=== PATIENT | female | born 1945 | race Caucasian/White ===

== ENCOUNTER 2017-03-12 14:47 | Inpatient (IN) | payer OTHER ==
[~2017-03-12] VITALS: Ht 162.6 cm; Wt 48.3 kg
[~2017-03-12 14:47] MED LIST: ADVAIR 250-501 EACH IH; ADVAIR 250/501 DISK IH; ATIVAN0.5 MG PO; CRESTOR5 MG PO; DALIRESP500 MCG PO; DELTASONE10 MG PO; DILTIAZEM 24HR240 MG PO; DUONEB3 ML IH; PHENOBARBITAL32.4 MG PO; SPIRIVA RESPIMAT4 GM IH; SPIRIVA1 INHALATI IH; THEO-DUR200 MG PO; VENTOLIN HFA18 GM IH; WELLBUTRIN SR150 MG PO
[2017-03-12 20:28] LABS: HEMATOCRIT 37.4 % (36.0-46.0); HEMOGLOBIN 12.1 G/DL (11.9-15.5); MCH 30.3 PG (29.0-34.0); MCHC 32.4 G/DL (30.0-36.0); MCV 93.7 FL (83-99); PLATELET COUNT 240 K/uL (156-360); RBC DIS.WIDTH-SD 41.6 % (39-53); RED BLOOD COUNT 3.99 M/uL (3.80-5.20); WHITE BLOOD COUNT 8.8 K/uL (4.1-10.2)
[2017-03-12 20:36] LABS: CHLORIDE 98 mEq/L (99-109); POTASSIUM 4.6 mEq/L (3.7-5.4); SODIUM 135 mEq/L (136-147)
[2017-03-12 20:38] LABS: GLUCOSE 104 mg/dL (70-99)
[2017-03-12 20:42] LABS: CREATININE 0.5 mg/dL (0.6-1.3); GFR ESTIMATE (CALCULATED) > 59 mL/min/
[2017-03-12 20:43] LABS: UREA NITROGEN (BUN) 15 mg/dL (9-23)
[2017-03-13] MEDS ORDERED: ROSUVASTATIN CAL5 MG PO (00:56)
[2017-03-13] MEDS ORDERED: VENTOLIN HFA18 GM IH ×2 (00:57→01:05)
[2017-03-13] MEDS ORDERED: DALIRESP500 MCG PO (00:58)
[2017-03-13] MEDS ORDERED: CARTIA XT240 MG PO (00:59)
[2017-03-13] MEDS ORDERED: BUSPAR5 MG PO (01:00)
[2017-03-13] MEDS ORDERED: RANITIDINE HCL150 MG PO (01:01)
[2017-03-13] MEDS ORDERED: ADVAIR 250/501 DISK IH (01:02)
[2017-03-13] MEDS ORDERED: DUONEB 2.5-0.5 M3 ML AEROSOL (01:02)
[2017-03-13] MEDS ORDERED: COMBIVENT RESPIM4 GM IH (01:04)
[2017-03-13] MEDS ORDERED: ATROVENT H200 INHALA IH (01:04)
[2017-03-13 03:59] LABS: APPEARANCE CLEAR ((CLEAR)); BILIRUBIN NEGATIVE; BLOOD NEGATIVE; COLOR YELLOW ((YELLOW)); GLUCOSE (STRIP) NEGATIVE; KETONES 20; LEUKOCYTES NEGATIVE; NITRITE NEGATIVE; PROTEIN (STRIP) 30; SPECIFIC GRAVITY 1.025 (1.000-1.030); UCUL ADDED? NO; UROBILINOGEN 0.2 MG/DL (0.2-1.0)
[2017-03-13 06:07] LABS: HEMATOCRIT 34.3 % (36.0-46.0); HEMOGLOBIN 11.3 G/DL (11.9-15.5); MCH 31.1 PG (29.0-34.0); MCHC 32.9 G/DL (30.0-36.0); MCV 94.5 FL (83-99); PLATELET COUNT 230 K/uL (156-360); RBC DIS.WIDTH-SD 41.9 % (39-53); RED BLOOD COUNT 3.63 M/uL (3.80-5.20); WHITE BLOOD COUNT 6.6 K/uL (4.1-10.2)
[2017-03-13 06:15] LABS: CHLORIDE 96 mEq/L (99-109); POTASSIUM 4.4 mEq/L (3.7-5.4); SODIUM 134 mEq/L (136-147)
[2017-03-13 06:17] LABS: GLUCOSE 96 mg/dL (70-99)
[2017-03-13 06:21] LABS: CREATININE 0.5 mg/dL (0.6-1.3); GFR ESTIMATE (CALCULATED) > 59 mL/min/
[2017-03-13 06:22] LABS: UREA NITROGEN (BUN) 17 mg/dL (9-23)
[2017-03-13 06:58] LABS: HDL CHOLESTEROL 71 MG/DL (Desirable>=50); LDL CHOLESTEROL 76 mg/dL (Desirable<100); NON-HDL CHOLESTEROL 84 mg/dL (Desirable<160); TOTAL CHOLESTEROL 155 mg/dL (Desirable<200); TRIGLYCERIDES 39 MG/DL (Normal: <150)
[2017-03-13 17:29] VITALS: BP 130/63
[2017-03-13 20:54] VITALS: BP 130/60
[2017-03-14] VITALS (7 sets, daily range): BP systolic 127–172; BP diastolic 60–78
[2017-03-14 07:47] LABS: HEMATOCRIT 36.1 % (36.0-46.0); HEMOGLOBIN 11.8 G/DL (11.9-15.5); MCH 30.4 PG (29.0-34.0); MCHC 32.7 G/DL (30.0-36.0); PLATELET COUNT 233 K/uL (156-360); RBC DIS.WIDTH-CV 12.1 % (11.8-14.6); RBC DIS.WIDTH-SD 41.2 % (39-53); RED BLOOD COUNT 3.88 M/uL (3.80-5.20); WHITE BLOOD COUNT 5.2 K/uL (4.1-10.2)
[2017-03-14 08:28] LABS: CHLORIDE 97 MEQ/L (99-109); POTASSIUM 4.2 MEQ/L (3.7-5.4); SODIUM 138 MEQ/L (136-147)
[2017-03-14 08:34] LABS: CREATININE 0.3 MG/DL (0.6-1.3); GFR ESTIMATE (CALCULATED) > 59 mL/min/; GLUCOSE 118 mg/dL (70-99); UREA NITROGEN (BUN) 9 mg/dL (9-23)
[2017-03-15 00:27] VITALS: BP 141/63
[2017-03-15 06:05] LABS: BASOPHIL (%) 0.1 % (0-1); EOSINOPHIL (%) 0 % (0-5); HEMATOCRIT 32.5 % (36.0-46.0); HEMOGLOBIN 10.6 G/DL (11.9-15.5); IMMATURE GRANULOCYTE (%) 0.3 % (0.0-0.7); LYMPHOCYTE (%) 19.5 % (15-42); LYMPHOCYTE COUNT 1.5 K/uL (1.0-2.8); MCH 30.7 PG (29.0-34.0); MCHC 32.6 G/DL (30.0-36.0); MCV 94.2 FL (83-99); MONOCYTE (%) 14.6 % (3-12); MONOCYTE COUNT 1.2 K/uL (0-0.8); NEUTROPHIL (%) 65.5 % (45-76); NEUTROPHIL COUNT 5.2 K/uL (1.8-6.4); PLATELET COUNT 233 K/uL (156-360); RBC DIS.WIDTH-CV 12.4 % (11.8-14.6); RBC DIS.WIDTH-SD 43.1 % (39-53); RED BLOOD COUNT 3.45 M/uL (3.80-5.20); WHITE BLOOD COUNT 7.9 K/uL (4.1-10.2)
[2017-03-15 06:17] LABS: CHLORIDE 96 MEQ/L (99-109); SODIUM 139 MEQ/L (136-147)
[2017-03-15 06:23] LABS: CREATININE 0.3 MG/DL (0.6-1.3); GFR ESTIMATE (CALCULATED) > 59 mL/min/; GLUCOSE 90 mg/dL (70-99); UREA NITROGEN (BUN) 12 mg/dL (9-23)
[2017-03-15 06:24] LABS: FASTING STATUS A
[2017-03-15 08:24] VITALS: BP 126/62
[2017-03-15] MEDS ORDERED: OXYCODONE HCL5 MG PO (11:04)
[2017-03-15] MEDS ORDERED: LOVENOX40 MG/0.4 SC (11:11)
[2017-03-15 11:41] VITALS: BP 137/63
[2017-03-15 15:56] VITALS: BP 141/66
[2017-03-15 19:53] VITALS: BP 132/62
[2017-03-16 00:38] VITALS: BP 152/68
[2017-03-16 04:09] VITALS: BP 170/71
[2017-03-16 07:54] VITALS: BP 159/67
[2017-03-16 10:33] LABS: IRON 54 MCG/DL (35-150); TRANSFERRIN (TIBC) 228.1 mg/dL (215-380); TRANSFERRIN SATUR. 24 % (20-55)
[2017-03-16 11:44] LABS: FERRITIN 64 NG/ML (10-291)
[2017-03-16 11:52] VITALS: BP 140/65
[2017-03-16 12:55] LABS: HEMATOCRIT 37.6 % (36.0-46.0); HEMOGLOBIN 12.2 G/DL (11.9-15.5); MCH 30.9 PG (29.0-34.0); MCHC 32.4 G/DL (30.0-36.0); MCV 95.2 FL (83-99); PLATELET COUNT 256 K/uL (156-360); RBC DIS.WIDTH-CV 12.4 % (11.8-14.6); RBC DIS.WIDTH-SD 43.6 % (39-53); RED BLOOD COUNT 3.95 M/uL (3.80-5.20); WHITE BLOOD COUNT 7.6 K/uL (4.1-10.2)
[2017-03-16 13:12] LABS: CHLORIDE 91 MEQ/L (99-109); SODIUM 135 MEQ/L (136-147)
[2017-03-16 13:22] LABS: CREATININE 0.3 MG/DL (0.6-1.3); GFR ESTIMATE (CALCULATED) > 59 mL/min/; UREA NITROGEN (BUN) 11 mg/dL (9-23)
[2017-03-16 13:23] LABS: GLUCOSE 149 mg/dL (70-99)
[2017-03-16 19:39] VITALS: BP 143/67
[2017-03-17 00:14] VITALS: BP 162/70
[2017-03-17 03:58] VITALS: BP 170/78
[2017-03-17 04:00] VITALS: BP 155/75
[2017-03-17 07:52] VITALS: BP 138/63
[2017-03-17 11:27] VITALS: BP 128/61
[2017-03-17] MEDS ORDERED: CARDIZEM30 MG PO (13:50)
[2017-03-17] MEDS ORDERED: PREDNISONE10 MG PO (13:51)
[2017-03-17 15:12] VITALS: BP 141/65
[2017-03-17] MEDS ORDERED: OXYCODONE HCL5 MG PO (17:12)
== END 2017-03-17 18:22 | DRG 563 ==
LOC: EME 14:47 → 3EAST 21:22 → EDOF 21:22 → 3EAST 21:22 → ENRESERV 21:25 → 3EAST 03-13 17:23
PROVIDERS: Emergency Medicine; Internal Medicine
DX: S82.832A Other fracture of upper and lower end of left fibula, initial encounter for closed fracture (principal); J96.10 Chronic respiratory failure, unspecified whether with hypoxia or hypercapnia; S72.422A Displaced fracture of lateral condyle of left femur, initial encounter for closed fracture; W01.0XXA Fall on same level from slipping, tripping and stumbling without subsequent striking against object, initial encounter; Y92.009 Unspecified place in unspecified non-institutional (private) residence as the place of occurrence of the external cause; G40.909 Epilepsy, unspecified, not intractable, without status epilepticus; E86.0 Dehydration; J44.1 Chronic obstructive pulmonary disease with (acute) exacerbation; E78.00 Pure hypercholesterolemia, unspecified; I10 Essential (primary) hypertension; I16.0 Hypertensive urgency; E78.5 Hyperlipidemia, unspecified; Z99.81 Dependence on supplemental oxygen; F41.9 Anxiety disorder, unspecified; M81.0 Age-related osteoporosis without current pathological fracture; Z87.891 Personal history of nicotine dependence; Z86.718 Personal history of other venous thrombosis and embolism; R64 Cachexia; I27.20 Pulmonary hypertension, unspecified; I08.3 Combined rheumatic disorders of mitral, aortic and tricuspid valves; Z90.710 Acquired absence of both cervix and uterus; R63.6 Underweight; Z68.1 Body mass index [BMI] 19.9 or less, adult
CPT/HCPCS: 71045; 73564; 73610; 73700; 80048; 80061; 81003; 82272; 82728; 83540; 83605; 84443; 84466; 85025; 85027; 85610; 85730; 90686; 93005; 93306; 94640; 94640 76; 94760; 94799; 99202; 99281; 99285; G0378; J1650; J1885; J2060; J2270; J3010; J7030; J7512

== ENCOUNTER 2017-03-21 05:40 | Inpatient (IN) | payer OTHER ==
[~2017-03-21] VITALS: Ht 154.9 cm; Wt 58.0 kg
[2017-03-21] VITALS (16 sets, daily range): BP systolic 52–139; BP diastolic 33–66
[~2017-03-21 05:40] MED LIST changes: +ATROVENT H200 INHALA IH; +BUSPAR5 MG PO; +CARDIZEM30 MG PO; +CARTIA XT240 MG PO; +COMBIVENT RESPIM4 GM IH; +DUONEB 2.5-0.5 M3 ML AEROSOL; +LOVENOX40 MG/0.4 SC; +OXYCODONE HCL5 MG PO; +PREDNISONE10 MG PO; +RANITIDINE HCL150 MG PO; +ROSUVASTATIN CAL5 MG PO
[2017-03-21 06:07] LABS: BASE EXCESS 8.3 mEq/L (-3 to +3); BICARBONATE 38.6 mEq/L (22-26); CARBOXY HGB 1.1 % (0-5); COMMENTS - BLOOD GASES C+; DEVICE VENT; FI02 80 %; MECHANICAL RATE 16 resp/min; METHEMOGLOBIN 1.7 % (0-1.5); MODE A/C; PCO2 84 mm Hg (35-45); PEEP 5 CM/H20; PO2 280 mm Hg (80-100); SITE LR; TIDAL VOLUME 400 ML; TOTAL RESP RATE 16 resp/min; pH 7.27 (7.35-7.45)
[2017-03-21 06:49] LABS: BASOPHIL (%) 0.1 % (0-1); EOSINOPHIL (%) 0 % (0-5); HEMATOCRIT 35.9 % (36.0-46.0); HEMOGLOBIN 11.8 G/DL (11.9-15.5); IMMATURE GRANULOCYTE (%) 0.6 % (0.0-0.7); LYMPHOCYTE (%) 3.8 % (15-42); LYMPHOCYTE COUNT 0.5 K/uL (1.0-2.8); MCH 30.5 PG (29.0-34.0); MCHC 32.9 G/DL (30.0-36.0); MCV 92.8 FL (83-99); MONOCYTE (%) 3.3 % (3-12); MONOCYTE COUNT 0.4 K/uL (0-0.8); NEUTROPHIL (%) 92.2 % (45-76); NEUTROPHIL COUNT 12.1 K/uL (1.8-6.4); PLATELET COUNT 284 K/uL (156-360); RBC DIS.WIDTH-CV 12.5 % (11.8-14.6); RBC DIS.WIDTH-SD 41.8 % (39-53); RED BLOOD COUNT 3.87 M/uL (3.80-5.20); WHITE BLOOD COUNT 13.1 K/uL (4.1-10.2)
[2017-03-21 06:59] LABS: CHLORIDE 90 mEq/L (99-109); SODIUM 130 mEq/L (136-147)
[2017-03-21 07:01] LABS: GLUCOSE 142 mg/dL (70-99)
[2017-03-21 07:02] LABS: POTASSIUM 4.9 mEq/L (3.7-5.4)
[2017-03-21 07:05] LABS: CREATININE 0.5 mg/dL (0.6-1.3); GFR ESTIMATE (CALCULATED) > 59 mL/min/
[2017-03-21 07:06] LABS: UREA NITROGEN (BUN) 19 mg/dL (9-23)
[2017-03-21 07:13] LABS: TROP-I INTERPRETATION NEGATIVE; TROPONIN-I < 0.01 ng/mL (0.0-0.30)
[2017-03-21] MEDS ORDERED: CRESTOR5 MG PO (09:25)
[2017-03-21] MEDS ORDERED: BUSPAR5 MG PO (09:26)
[2017-03-21] MEDS ORDERED: ZANTAC150 MG PO (09:26)
[2017-03-21] MEDS ORDERED: DALIRESP500 MCG PO (09:26)
[2017-03-21] MEDS ORDERED: ADVAIR 250/501 DISK IH (09:27)
[2017-03-21] MEDS ORDERED: LOVENOX40 MG/0.4 SC (09:28)
[2017-03-21] MEDS ORDERED: CARDIZEM CD120 M1 PO (09:29)
[2017-03-21] MEDS ORDERED: SENNA-S TABLET1 EACH PO (09:30)
[2017-03-21] MEDS ORDERED: COLACE100 MG PO (09:30)
[2017-03-21] MEDS ORDERED: ATROVENT H200 INHALA IH (09:31)
[2017-03-21] MEDS ORDERED: DUONEB 2.5-0.5 M3 ML AEROSOL (09:31)
[2017-03-21] MEDS ORDERED: OXAYDO5 MG PO (09:33)
[2017-03-21] MEDS ORDERED: ATIVAN0.5 MG PO (09:34)
[2017-03-21 13:58] LABS: CARBOXY HGB 2.2 % (0-5); METHEMOGLOBIN 1.9 % (0-1.5)
[2017-03-21 13:59] LABS: BICARBONATE 29.4 mEq/L (22-26); COMMENTS - BLOOD GASES A+C+; DEVICE VENTILATOR; MECHANICAL RATE 16 resp/min; MODE AC-16; PCO2 64 mm Hg (35-45); PEEP 5 CM/H20; PO2 79 mm Hg (80-100); SITE RR; TIDAL VOLUME 400 ML; TOTAL RESP RATE 17 resp/min; pH 7.27 (7.35-7.45)
[2017-03-21 14:00] LABS: FI02 70 %
[2017-03-22] VITALS (26 sets, daily range): BP systolic 81–142; BP diastolic 41–73
[2017-03-22 10:33] LABS: CREATININE 0.9 MG/DL (0.6-1.3); GFR ESTIMATE (CALCULATED) > 59 mL/min/; GLUCOSE 128 mg/dL (70-99); POTASSIUM 4.1 MEQ/L (3.7-5.4)
[2017-03-22 10:34] LABS: CHLORIDE 109 MEQ/L (99-109); SODIUM 139 MEQ/L (136-147); UREA NITROGEN (BUN) 33 mg/dL (9-23)
[2017-03-23] VITALS (25 sets, daily range): BP systolic 62–141; BP diastolic 37–93
[2017-03-23 09:20] LABS: VANCOMYCIN, TROUGH 18.9 MCG/ML (10-20)
[2017-03-23 12:20] LABS: CHLORIDE 109 MEQ/L (99-109); CREATININE 1.5 MG/DL (0.6-1.3); GFR ESTIMATE (CALCULATED) 37 mL/min/; GLUCOSE 122 mg/dL (70-99); POTASSIUM 4.5 MEQ/L (3.7-5.4); SODIUM 139 MEQ/L (136-147); UREA NITROGEN (BUN) 48 mg/dL (9-23)
[2017-03-23 13:01] LABS: BASE EXCESS -6.9 mEq/L (-3 to +3); BICARBONATE 19.7 mEq/L (22-26); CARBOXY HGB 1.5 % (0-5); COMMENTS - BLOOD GASES A+C+; METHEMOGLOBIN 1.9 % (0-1.5); PCO2 43 mm Hg (35-45); PO2 103 mm Hg (80-100); SITE RR; pH 7.27 (7.35-7.45)
[2017-03-23 13:02] LABS: DEVICE VENTILATOR; MECHANICAL RATE 22 resp/min; MODE AC-22; PEEP 5 CM/H20; TIDAL VOLUME 400 ML; TOTAL RESP RATE 22 resp/min
[2017-03-23 21:15] LABS: HEMATOCRIT 27.1 % (36.0-46.0); MCH 30.6 PG (29.0-34.0); MCHC 32.8 G/DL (30.0-36.0); MCV 93.1 FL (83-99); RBC DIS.WIDTH-CV 13.7 % (11.8-14.6); WHITE BLOOD COUNT 20.8 K/uL (4.1-10.2)
[2017-03-23 21:23] LABS: ABS NEUTROPHIL COUNT 19.4; ANISOCYTOSIS 2+; BAND NEUTROPHILS 15.7 % (0-8.0); EOSINOPHIL ABS CT 0; HEMOGLOBIN 8.9 G/DL (11.9-15.5); LYMPHOCYTES 0.9 % (15.0-45.0); MACROCYTES 1+; METAMYELOCYTES 0.9 %; MONOCYTES 5.1 % (0-9.0); PLAT.SUFFICIENCY ADEQUATE; PLATELET CLUMPS PRESENT - PLATELET COUNT APPEARS ADQ.; PLATELET COUNT UNABLE TO REPORT K/uL (156-360); RED BLOOD COUNT 2.91 M/uL (3.80-5.20); SEG.NEUTROPHILS 77.4 % (46.0-76.0)
[2017-03-23 21:24] LABS: ALBUMIN 2.7 G/DL (3.2-4.8); CHLORIDE 109 MEQ/L (99-109); MAGNESIUM 2.2 mg/dl (1.3-2.7); POTASSIUM 4.2 MEQ/L (3.7-5.4); SODIUM 137 MEQ/L (136-147); TOTAL BILIRUBIN 0.6 MG/DL (0.0-1.0)
[2017-03-23 21:38] LABS: HIGH-SENS C-REACTIVE PROTEIN > 8.00 MG/DL (0.02-0.20)
[2017-03-23 21:39] LABS: ALKALINE PHOSPHATASE 74 IU/L (3-129); ALT (GPT) 49 IU/L (3-49); AST (GOT) 33 IU/L (2-34); GFR ESTIMATE (CALCULATED) 26 mL/min/; GLUCOSE 135 mg/dL (70-99); PHOSPHORUS 3.8 mg/dL (2.5-4.9); TOTAL PROTEIN 4.6 G/DL (6.4-8.3); UREA NITROGEN (BUN) 57 mg/dL (9-23)
[2017-03-24] VITALS (21 sets, daily range): BP systolic 84–134; BP diastolic 46–88
[2017-03-24 01:42] LABS: UR CREATININE CONCENTRATION 136.3 MG/DL
[2017-03-24 08:59] LABS: HEMATOCRIT 27.3 % (36.0-46.0); HEMOGLOBIN 9.1 G/DL (11.9-15.5); MCH 30.7 PG (29.0-34.0); MCHC 33.3 G/DL (30.0-36.0); MCV 92.2 FL (83-99); NRBC (%) 0.1 /100 WBC (0-0); RBC DIS.WIDTH-CV 13.9 % (11.8-14.6); RED BLOOD COUNT 2.96 M/uL (3.80-5.20); WHITE BLOOD COUNT 21.5 K/uL (4.1-10.2)
[2017-03-24 09:30] LABS: ALBUMIN 2.4 G/DL (3.2-4.8); ALKALINE PHOSPHATASE 97 IU/L (3-129); ALT (GPT) 63 IU/L (3-49); CHLORIDE 106 MEQ/L (99-109); CREATININE 2.4 MG/DL (0.6-1.3); GFR ESTIMATE (CALCULATED) 21 mL/min/; GLUCOSE 134 mg/dL (70-99); MAGNESIUM 2.3 mg/dl (1.3-2.7); PHOSPHORUS 4.5 mg/dL (2.5-4.9); POTASSIUM 4.3 MEQ/L (3.7-5.4); SODIUM 136 MEQ/L (136-147); TOTAL BILIRUBIN 0.6 MG/DL (0.0-1.0); TOTAL PROTEIN 4.1 G/DL (6.4-8.3); UREA NITROGEN (BUN) 63 mg/dL (9-23)
[2017-03-24 09:31] LABS: ABS NEUTROPHIL COUNT 20.9; ANISOCYTOSIS 1+; BAND NEUTROPHILS 6.1 % (0-8.0); BURR CELLS 3+; EOSINOPHIL ABS CT 0; LYMPHOCYTES 1.3 % (15.0-45.0); MACROCYTES 1+; MONOCYTES 1.3 % (0-9.0); NUCLEATED RBC'S 0.4; PLAT.SUFFICIENCY ADEQUATE; POIKILOCYTOSIS 3+; SEG.NEUTROPHILS 91.3 % (46.0-76.0)
[2017-03-24 09:39] LABS: PLATELET COUNT 168 K/uL (156-360)
[2017-03-24 10:01] LABS: AST (GOT) 50 IU/L (2-34)
[2017-03-24 11:43] LABS: HEPATITIS B SURFACE ANTIGEN Nonreactive
[2017-03-24 11:44] LABS: HEPATITIS C ANTIBODY Nonreactive
[2017-03-24 11:45] LABS: ANTI-HEPATITIS A VIRUS (IGM) Nonreactive; ANTI-HEPATITIS B CORE (IGM) Nonreactive
[2017-03-24 18:03] LABS: HEMATOCRIT 26.5 % (36.0-46.0); HEMOGLOBIN 8.9 G/DL (11.9-15.5); MCH 30.4 PG (29.0-34.0); MCHC 33.6 G/DL (30.0-36.0); MCV 90.4 FL (83-99); NRBC (%) 0.1 /100 WBC (0-0); PLATELET COUNT 164 K/uL (156-360); RBC DIS.WIDTH-CV 14.1 % (11.8-14.6); RBC DIS.WIDTH-SD 46.9 % (39-53); RED BLOOD COUNT 2.93 M/uL (3.80-5.20); WHITE BLOOD COUNT 25.5 K/uL (4.1-10.2)
[2017-03-24 18:34] LABS: ALBUMIN 2.9 G/DL (3.2-4.8); CHLORIDE 105 MEQ/L (99-109); CREATININE 2.4 MG/DL (0.6-1.3); GFR ESTIMATE (CALCULATED) 21 mL/min/; GLUCOSE 122 mg/dL (70-99); MAGNESIUM 2.4 mg/dl (1.3-2.7); PHOSPHORUS 4.4 mg/dL (2.5-4.9); POTASSIUM 4.2 MEQ/L (3.7-5.4); SODIUM 135 MEQ/L (136-147); UREA NITROGEN (BUN) 68 mg/dL (9-23)
[2017-03-24 18:58] LABS: ABS NEUTROPHIL COUNT 24.2; ANISOCYTOSIS 1+; BAND NEUTROPHILS 15.6 % (0-8.0); EOSINOPHIL ABS CT 0; LYMPHOCYTES 0.9 % (15.0-45.0); MACROCYTES 1+; METAMYELOCYTES 1.7 %; MONOCYTES 2.6 % (0-9.0); SEG.NEUTROPHILS 79.2 % (46.0-76.0)
[2017-03-25] VITALS (14 sets, daily range): BP systolic 91–130; BP diastolic 45–85
[2017-03-25 00:52] LABS: ALBUMIN 3.1 g/dL (3.2-4.8)
[2017-03-25 00:53] LABS: POTASSIUM 4.2 mEq/L (3.7-5.4); SODIUM 136 mEq/L (136-147)
[2017-03-25 00:55] LABS: GLUCOSE 108 mg/dL (70-99)
[2017-03-25 00:57] LABS: CHLORIDE 107 mEq/L (99-109)
[2017-03-25 00:58] LABS: PHOSPHORUS 3.2 mg/dL (2.5-4.9)
[2017-03-25 00:59] LABS: GFR ESTIMATE (CALCULATED) 34 mL/min/
[2017-03-25 01:00] LABS: UREA NITROGEN (BUN) 49 mg/dL (9-23)
[2017-03-25 01:12] LABS: CREATININE 1.6 mg/dL (0.6-1.3)
[2017-03-25 07:02] LABS: HEMOGLOBIN 9.7 G/DL (11.9-15.5); MCH 29.6 PG (29.0-34.0); MCHC 33.4 G/DL (30.0-36.0); MCV 88.4 FL (83-99); NRBC (%) 0.3 /100 WBC (0-0); RBC DIS.WIDTH-CV 14.2 % (11.8-14.6); RBC DIS.WIDTH-SD 46.1 % (39-53); RED BLOOD COUNT 3.28 M/uL (3.80-5.20); WHITE BLOOD COUNT 22.4 K/uL (4.1-10.2)
[2017-03-25 07:12] LABS: ALBUMIN 3.1 G/DL (3.2-4.8); ALKALINE PHOSPHATASE 96 IU/L (3-129); ALT (GPT) 65 IU/L (3-49); AST (GOT) 48 IU/L (2-34); CHLORIDE 107 MEQ/L (99-109); CREATININE 1.2 MG/DL (0.6-1.3); GFR ESTIMATE (CALCULATED) 47 mL/min/; GLUCOSE 103 mg/dL (70-99); MAGNESIUM 2.4 mg/dl (1.3-2.7); POTASSIUM 4.3 MEQ/L (3.7-5.4); SODIUM 138 MEQ/L (136-147); UREA NITROGEN (BUN) 38 mg/dL (9-23)
[2017-03-25 07:16] LABS: ABS NEUTROPHIL COUNT 21.5; ANISOCYTOSIS 1+; BAND NEUTROPHILS 10.9 % (0-8.0); BASOPHILS 0.4 %; BURR CELLS 1+; EOSINOPHIL ABS CT 0; MACROCYTES 1+; MONOCYTES 3.5 % (0-9.0); NUCLEATED RBC'S 0.9; OVALOCYTES 1+; PLAT.SUFFICIENCY DECREASED; PLATELET COUNT 122 K/uL (156-360); POIKILOCYTOSIS 3+; POLYCHROMASIA 1+; SEG.NEUTROPHILS 85.2 % (46.0-76.0)
[2017-03-25 07:22] LABS: PHOSPHORUS 2.7 mg/dL (2.5-4.9); TOTAL BILIRUBIN 0.8 MG/DL (0.0-1.0); TOTAL PROTEIN 5.4 G/DL (6.4-8.3)
[2017-03-25 14:19] LABS: ALBUMIN 2.8 g/dL (3.2-4.8); CHLORIDE 107 mEq/L (99-109); POTASSIUM 4.8 mEq/L (3.7-5.4); SODIUM 135 mEq/L (136-147)
[2017-03-25 14:21] LABS: GLUCOSE 92 mg/dL (70-99)
[2017-03-25 14:25] LABS: CREATININE 1.1 mg/dL (0.6-1.3); GFR ESTIMATE (CALCULATED) 52 mL/min/; PHOSPHORUS 2.3 mg/dL (2.5-4.9)
[2017-03-25 14:26] LABS: UREA NITROGEN (BUN) 30 mg/dL (9-23)
[2017-03-25 18:36] LABS: HEMATOCRIT 30.2 % (36.0-46.0); HEMOGLOBIN 10.1 G/DL (11.9-15.5); MCH 29.7 PG (29.0-34.0); MCHC 33.4 G/DL (30.0-36.0); MCV 88.8 FL (83-99); NRBC (%) 0.5 /100 WBC (0-0); PLATELET COUNT 105 K/uL (156-360); RBC DIS.WIDTH-CV 14.7 % (11.8-14.6); RBC DIS.WIDTH-SD 47.4 % (39-53); WHITE BLOOD COUNT 22.4 K/uL (4.1-10.2)
[2017-03-25 18:52] LABS: MAGNESIUM 2.4 mg/dl (1.3-2.7); PHOSPHORUS 2.3 mg/dL (2.5-4.9)
[2017-03-25 19:18] LABS: ABS NEUTROPHIL COUNT 19.6; ANISOCYTOSIS 2+; BURR CELLS 1+; EOSINOPHIL ABS CT 0; LYMPHOCYTES 0.9 % (15.0-45.0); MACROCYTES 2+; METAMYELOCYTES 2.2 %; MONOCYTES 8.4 % (0-9.0); MYELOCYTES 0.9 %; NUCLEATED RBC'S 2.7; OVALOCYTES 1+; PLAT.SUFFICIENCY ADEQUATE; POIKILOCYTOSIS 1+
[2017-03-25 19:25] LABS: BAND NEUTROPHILS 42.5 % (0-8.0); SEG.NEUTROPHILS 45.1 % (46.0-76.0)
[2017-03-25 21:13] LABS: ALBUMIN 2.9 G/DL (3.2-4.8); CHLORIDE 107 MEQ/L (99-109); CREATININE 0.9 MG/DL (0.6-1.3); GFR ESTIMATE (CALCULATED) > 59 mL/min/; GLUCOSE 86 mg/dL (70-99); PHOSPHORUS 2.4 mg/dL (2.5-4.9); POTASSIUM 4.6 MEQ/L (3.7-5.4); SODIUM 138 MEQ/L (136-147); UREA NITROGEN (BUN) 24 mg/dL (9-23)
[2017-03-26] VITALS (24 sets, daily range): BP systolic 65–151; BP diastolic 41–79
[2017-03-26 05:18] LABS: HEMATOCRIT 30.8 % (36.0-46.0); HEMOGLOBIN 10.1 G/DL (11.9-15.5); MCH 29.5 PG (29.0-34.0); MCHC 32.8 G/DL (30.0-36.0); MCV 90.1 FL (83-99); NRBC (%) 0.8 /100 WBC (0-0); RBC DIS.WIDTH-CV 15.3 % (11.8-14.6); RBC DIS.WIDTH-SD 50.6 % (39-53); RED BLOOD COUNT 3.42 M/uL (3.80-5.20)
[2017-03-26 05:47] LABS: ALBUMIN 2.6 G/DL (3.2-4.8); ALKALINE PHOSPHATASE 120 IU/L (3-129); CHLORIDE 105 MEQ/L (99-109); CREATININE 0.8 MG/DL (0.6-1.3); GFR ESTIMATE (CALCULATED) > 59 mL/min/; GLUCOSE 83 mg/dL (70-99); MAGNESIUM 2.5 mg/dl (1.3-2.7); PHOSPHORUS 2.7 mg/dL (2.5-4.9); POTASSIUM 4.8 MEQ/L (3.7-5.4); SODIUM 136 MEQ/L (136-147); TOTAL BILIRUBIN 1.5 MG/DL (0.0-1.0); TOTAL PROTEIN 4.4 G/DL (6.4-8.3); UREA NITROGEN (BUN) 23 mg/dL (9-23)
[2017-03-26 05:48] LABS: ALT (GPT) 294 IU/L (3-49); AST (GOT) 437 IU/L (2-34)
[2017-03-26 06:21] LABS: ABS NEUTROPHIL COUNT 23.4; EOSINOPHIL ABS CT 0; MONOCYTES 2.6 % (0-9.0); NUCLEATED RBC'S 2.6; SMUDGE CELLS 0.9
[2017-03-26 06:22] LABS: BAND NEUTROPHILS 10.5 % (0-8.0); PLATELET COUNT UNABLE TO REPORT K/uL (156-360); SEG.NEUTROPHILS 86.9 % (46.0-76.0)
[2017-03-26 07:29] LABS: BASE EXCESS -8.8 mEq/L (-3 to +3); BICARBONATE 21.5 mEq/L (22-26); CARBOXY HGB 1.8 % (0-5); METHEMOGLOBIN 1.8 % (0-1.5)
[2017-03-26 07:30] LABS: PCO2 71 mm Hg (35-45); PO2 62 mm Hg (80-100)
[2017-03-26 07:31] LABS: DEVICE PB840; FI02 100 %; MECHANICAL RATE 22 resp/min; MODE AC; PEEP 5 CM/H20; SITE ALINE; TIDAL VOLUME 400 ML; TOTAL RESP RATE 22 resp/min; pH 7.09 (7.35-7.45)
== END 2017-03-26 21:49 | DRG 870 ==
LOC: EME 05:40 → 4WEST 07:36 → ENRESERV 07:36 → EDOF 07:36 → ENRESERV 09:16 → 4WEST 09:52
PROVIDERS: Emergency Medicine; Internal Medicine; Internal Medicine Critical Care Medicine; Internal Medicine Nephrology
PROC: 5A1955Z Respiratory Ventilation, Greater than 96 Consecutive Hours (ICD-10-PCS; principal; 2017-03-21)
PROC: 0BH17EZ Insertion of Endotracheal Airway into Trachea, Via Natural or Artificial Opening (ICD-10-PCS; principal; 2017-03-21)
PROC: 5A1D80Z Performance of Urinary Filtration, Prolonged Intermittent, 6-18 hours Per Day (ICD-10-PCS; 2017-03-24)
PROC: 05HM33Z Insertion of Infusion Device into Right Internal Jugular Vein, Percutaneous Approach (ICD-10-PCS; 2017-03-24)
PROC: 03HY32Z Insertion of Monitoring Device into Upper Artery, Percutaneous Approach (ICD-10-PCS; 2017-03-24)
DX: A41.9 Sepsis, unspecified organism (principal); R65.21 Severe sepsis with septic shock; J96.21 Acute and chronic respiratory failure with hypoxia; N17.9 Acute kidney failure, unspecified; I48.91 Unspecified atrial fibrillation; E87.2 Acidosis; E87.70 Fluid overload, unspecified; J15.212 Pneumonia due to Methicillin resistant Staphylococcus aureus; J44.1 Chronic obstructive pulmonary disease with (acute) exacerbation; J44.0 Chronic obstructive pulmonary disease with (acute) lower respiratory infection; I10 Essential (primary) hypertension; G40.909 Epilepsy, unspecified, not intractable, without status epilepticus; Z78.1 Physical restraint status; Z87.891 Personal history of nicotine dependence; Z99.81 Dependence on supplemental oxygen; E78.00 Pure hypercholesterolemia, unspecified; F32.9 Major depressive disorder, single episode, unspecified; Z66 Do not resuscitate
CPT/HCPCS: 36600; 71045; 71275; 74176; 76770; 80048; 80053; 80069; 80074; 80202; 81003; 82140; 82436; 82533 91; 82570; 82803; 83605; 83735; 83880; 84100; 84133; 84145 90; 84300; 84443; 84484; 85025; 85025 91; 86141; 87040; 87070; 87077; 87086; 87147; 87186; 87205; 87641; 87801; 93005; 94002; 94003; 94640; 94640 76; 94760; 99202; 99281; 99285; C1751; C1788; J0692; J1100; J1644; J1650; J1940; J2060; J2250; J2370; J2543; J2704; J2930; J3010; J3370; J3475; J7030; J7050; J7644; P9045